=== PATIENT | male | born 1960 | race Caucasian/White ===

== ENCOUNTER → 2017-09-24 | Outpatient (CLI) | payer BC ==
[~2017-09-24] VITALS: Ht 175.3 cm; Wt 58.8 kg
[~2017-09-24] MED LIST: AMLO-114 PO; CEFAZOLIN 1000MG IV PUSH 7.5 ML IV SCH; CLB100 PO; FURO-85 PO; GABA-113 PO; LACTATED RINGER'S 1000ML 1,000 ML IV SCH; NICO21DI4 TOP; SIMV20TA2 PO
[2017-09-24 14:45] VITALS: Ht 175.3 cm; Wt 58.8 kg
--- NOTE | 2017-09-24 15:08 | PAT Medication Instructions ---
Service Date Sep 24, 2017. Current Home Medication List Amlodipine (Norvasc), 10 MG PO QAM Celecoxib (Celebrex), 1 CAP PO BID Furosemide (Lasix), 20 MG PO QAM Gabapentin (Neurontin), 300 MG PO TID Nicotine (Nicoderm Cq), 1 PATCH TOP DAILY Simvastatin (Zocor), 20 MG PO QAM Medication Instructions For Your Scheduled Surgery -Contact your surgeon for instructions for: Celecoxib (Celebrex), 1 CAP PO BID - Hold the following medications the morning of surgery: Furosemide (Lasix), 20 MG PO QAM Nicotine (Nicoderm Cq), 1 PATCH TOP DAILY - Take the following medications the morning of surgery with a sip of water: Simvastatin (Zocor), 20 MG PO QAM Gabapentin (Neurontin), 300 MG PO TID Amlodipine (Norvasc), 10 MG PO QAM - Take the following medications as scheduled the night before surgery: Gabapentin (Neurontin), 300 MG PO TID Nicotine (Nicoderm Cq), 1 PATCH TOP DAILY If you have any questions please call us at [phone] or [phone] or [phone]
[2017-09-24 15:48] LABS: BASO % 0.8 %; BASO ABS # 0.09 K/uL (0-0.2); EOS % 7.1 %; EOS ABS # 0.77 K/uL (0-0.5); HEMOGLOBIN 14.6 g/dL (14.0-18.0); IG# 0.02 K/uL (0.00-0.02); LYMPH % 36.9 %; LYMPH ABS # 3.99 K/uL (1.2-3.4); MEAN CELL VOLUME 86.5 fL (80-100); MEAN CORPUSCULAR HEMOGLOBIN 29.4 pg (25-34); MEAN PLATELET VOLUME 9.7 fL (7.4-10.4); MONO % 9.7 %; MONO ABS # 1.05 K/uL (0.11-0.59); NEUT % 45.3 %; PLATELET COUNT 328 K/uL (130-400); RED CELL DISTRIBUTION WIDTH CV 12.9 % (11.5-14.5); RED CELL DISTRIBUTION WIDTH SD 41.1 fL (36.4-46.3); WHITE BLOOD COUNT 10.82 K/uL (4.8-10.8)
--- NOTE | 2017-09-24 15:57 | DIAGNOSTIC IMAGING REPORT ---
CHEST 2 VIEWS ROUTINE HISTORY: 57 years-old Male PAT preoperative exam. No acute chest complaints. COMPARISON: None available TECHNIQUE: PA and lateral views of the chest FINDINGS: Cardiomediastinal and hilar silhouettes are within normal limits. Lungs are hyperinflated with increased lucency suggesting emphysema. Mild biapical pleural-parenchymal scarring without pneumothorax, pleural effusion, focal airspace consolidation or overt pulmonary edema. Bones of the chest appear grossly intact. IMPRESSION: 1. No acute cardiopulmonary process. 2. Hyperinflation with suggested emphysema. The above report was generated using voice recognition software. It may contain grammatical, syntax or spelling errors. Electronically signed by: Niko Doty M.D. 09/24/2017 3:56 PM Dictated Date/Time: 09/24/2017 3:55 PM
== END | disposition home or self-care (01) ==
LOC: C.LAB 08:00 → EDSTATUS 10-09 09:23
PROVIDERS: ATTEND Orthopaedic Surgery Orthopaedic Surgery of the Spine
DX: Z01.810 Encounter for preprocedural cardiovascular examination (principal); Z01.811 Encounter for preprocedural respiratory examination; Z01.812 Encounter for preprocedural laboratory examination; R91.8 Other nonspecific abnormal finding of lung field